=== PATIENT | male | born 1980 | race Caucasian/White ===

== ENCOUNTER → 2017-06-09 | Outpatient (CLI) | payer OTHER ==
[~2017-06-09] MED LIST: ARIP10 PO; ARIP20 PO; Ativan1 MG PO; CLON.1 PO; CLON1 PO; CODACE30 PO; CYCL10 PO; Cleocin HCl300 MG PO; DEPRESSION MED; DOXY100 PO; DULO30 PO; HYDACE5325 PO; IBUP600 PO; KETO10 PO; Kristalose20 GM PO; LORA1 PO; LORA2 PO; Loxapine10 MG PO; MEDICAL MARIJUANA; METPHE10 PO; METPHE20 PO; NAPR500 PO; OMEP40CA12 PO; ONDA4ODT MM; PRAZ1 PO; PREVPAC PO; RANI150 PO; RXCYCL10 PO; RXOXYACE PO; RXTRAM50 PO; TRAM50 PO; Zofran Odt8 MG SL; Zofran8 MG PO
[2017-06-11 21:28] LABS: Alpha Hyrdroxyalprazolam Not Detected (NOTDET); Alpha hydroxytriazolam Not Detected (NOTDET); Alprazolam Not Detected (NOTDET); Confirm Clonazepam LC/MS Not Detected (NOTDET); Confirm Flunitrazepam LC/MS Not Detected (NOTDET); Diazepam Not Detected (NOTDET); Flurazepam Not Detected (NOTDET); Lorazepam Not Detected (NOTDET); Midazolam Not Detected (NOTDET); Temazepam Not Detected (NOTDET)
== END ==
LOC: LAB 14:56
PROVIDERS: Psychiatry & Neurology Psychiatry
DX: F12.151 Cannabis abuse with psychotic disorder with hallucinations (principal); Z79.899 Other long term (current) drug therapy
CPT/HCPCS: G0480

== ENCOUNTER 2018-12-05 16:27 | Observation (INO) | payer OTHER ==
[~2018-12-05] VITALS: Ht 182.9 cm; Wt 74.8 kg
[~2018-12-05 16:27] MED LIST changes: +CLON.5; +HYOS.125 SL
[2018-12-05 18:18] LABS: BASOPHILS ABSOLUTE AUTO 0.07 K/mm3 (0.00-0.23); BASOPHILS PERCENT AUTO 1 % (0-2); EOSINOPHILS ABSOLUTE AUTO 0.21 K/mm3 (0.00-0.68); EOSINOPHILS PERCENT AUTO 2 % (0-6); Hematocrit 41.2 % (37.0-53.0); Hemoglobin 14.6 g/dL (13.5-17.5); IMMATURE GRAN ABSOLUTE AUTO 0.03 K/mm3 (0.00-0.10); IMMATURE GRAN PERCENT AUTO 0 % (0-1); LYMPHOCYTES ABSOLUTE AUTO 2.67 K/mm3 (0.84-5.20); LYMPHOCYTES PERCENT AUTO 24 % (21-46); MONOCYTES ABSOLUTE AUTO 1.09 K/mm3 (0.16-1.47); MONOCYTES PERCENT AUTO 10 % (4-13); Mean Corpuscular HGB 31.5 pg (26.0-34.0); Mean Corpuscular HGB Conc 35.4 g/dL (31.5-36.5); Mean Corpuscular Volume 89 fL (80-100); Mean Platelet Volume 10.7 fL (9.1-12.4); NEUTROPHILS ABSOLUTE AUTO 6.91 K/mm3 (1.96-9.15); NEUTROPHILS PERCENT AUTO 63 % (41-73); Platelet Count 261 K/mm3 (150-400); RDW Coefficient Variation 12.3 % (11.7-14.2); RDW Standard Deviation 40.1 fL (35.1-46.3); Red Blood Cell Count 4.64 M/mm3 (4.30-5.90); White Blood Cell Count 10.98 K/mm3 (4.00-11.30)
[2018-12-05 18:49] LABS: Source, Urine Clean Catch
[2018-12-05 18:50] LABS: Alanine Aminotransfer (ALT/SGP 26 U/L (12-78); Albumin/Globulin Ratio 1.2 (0.8-1.8); Alk Phos 70 U/L (50-136); Anion Gap 8 mmol/L (6-16); Aspartate Aminotrans (AST/SGOT 54 U/L (12-37); Bilirubin, Total 1.5 mg/dL (0.1-1.0); Blood Urea Nitrogen 14 mg/dL (8-24); Bun/Creatinine Ratio 17.7 (12.0-20.0); CO2, Blood 21 mmol/L (21-32); Calcium, Blood 8.8 mg/dL (8.5-10.1); Chloride, Blood 107 mmol/L (98-108); Creatinine, Blood 0.79 mg/dL (0.60-1.20); Globulin, Blood 3.2 g/dL (2.2-4.0); Glomerular Filtration Rate >60 (60-); Glucose, Blood 82 mg/dL (70-99); Potassium, Blood 3.4 mmol/L (3.5-5.5); Sodium, Blood 136 mmol/L (136-145); Total Protein, Blood 7.2 g/dL (6.4-8.2)
[2018-12-05 18:52] LABS: Thyroid Stimulating Hormone 0.519 uIU/mL (0.360-4.800)
[2018-12-05 18:55] LABS: Ethanol (Alcohol), Blood, Med <3 mg/dL; Salicylate 2.4 mg/dL (2.8-20.0)
[2018-12-05 19:04] LABS: Appearance, Urine Clear (Clear); Bilirubin, Urine Neg (Neg); Blood, Urine Neg (Neg); Color, Urine Yellow (P-Yellow); Glucose Qualitative, Urine Neg (Neg); Ketones, Urine 2+ (Neg); Leukocyte Esterase, Urine Neg (Neg); Nitrite, Urine Neg (Neg); Protein, Urine Neg (Neg); Specific Gravity, Urine 1.015 (1.003-1.022); Urobilinogen, Urine NORM (Normal)
[2018-12-05 19:06] LABS: Thyroxine (T4) 6.8 ug/dL (4.5-12.1)
[2018-12-05 19:08] LABS: Acetaminophen, Random <2.0 ug/mL (10.0-30.0)
[2018-12-05 19:22] LABS: U Amphetamine Screen DETECTED; U Barbituate Screen Not Detected; U Benzodiazapine Screen Not Detected; U Buprenorphine Screen Not Detected; U Cannabinoids Screen DETECTED; U Cocaine Screen Not Detected; U Methadone Screen Not Detected; U Methamphetamine Screen DETECTED; U Opiates Screen Not Detected; U Oxycodone Screen Not Detected; U Phencyclidine Screen Not Detected; U Propoxyphene Screen Not Detected
[2018-12-06] MEDS ORDERED: OLAN10 PO (12:59)
== END 2018-12-06 13:18 | disposition home or self-care (01) ==
LOC: ER 16:27 → EOR 16:28
PROVIDERS: Emergency Medicine; Physician Assistant; ADMIT Emergency Medicine
DX: F20.0 Paranoid schizophrenia (principal); F15.122 Other stimulant abuse with intoxication with perceptual disturbance; F32.9 Major depressive disorder, single episode, unspecified; F41.9 Anxiety disorder, unspecified; Z79.899 Other long term (current) drug therapy; Z91.048 Other nonmedicinal substance allergy status; Z88.8 Allergy status to other drugs, medicaments and biological substances
CPT/HCPCS: 36415; 80053; 81003; 84436; 84443; 85025; 99285; G0378; G0480; Q3014

== ENCOUNTER 2018-12-09 12:35 | Emergency (ER) | payer OTHER ==
[~2018-12-09] VITALS: Ht 182.9 cm; Wt 70.3 kg
[~2018-12-09 12:35] MED LIST changes: +OLAN10 PO
[2018-12-09 13:38] LABS: BASOPHILS ABSOLUTE AUTO 0.07 K/mm3 (0.00-0.23); BASOPHILS PERCENT AUTO 1 % (0-2); EOSINOPHILS ABSOLUTE AUTO 0.67 K/mm3 (0.00-0.68); EOSINOPHILS PERCENT AUTO 7 % (0-6); Hematocrit 42.9 % (37.0-53.0); Hemoglobin 14.7 g/dL (13.5-17.5); IMMATURE GRAN ABSOLUTE AUTO 0.02 K/mm3 (0.00-0.10); IMMATURE GRAN PERCENT AUTO 0 % (0-1); LYMPHOCYTES ABSOLUTE AUTO 3.65 K/mm3 (0.84-5.20); LYMPHOCYTES PERCENT AUTO 40 % (21-46); MONOCYTES ABSOLUTE AUTO 0.86 K/mm3 (0.16-1.47); MONOCYTES PERCENT AUTO 10 % (4-13); Mean Corpuscular HGB 31.1 pg (26.0-34.0); Mean Corpuscular HGB Conc 34.3 g/dL (31.5-36.5); Mean Corpuscular Volume 91 fL (80-100); Mean Platelet Volume 10.3 fL (9.1-12.4); NEUTROPHILS PERCENT AUTO 42 % (41-73); Platelet Count 251 K/mm3 (150-400); RDW Coefficient Variation 12.5 % (11.7-14.2); Red Blood Cell Count 4.72 M/mm3 (4.30-5.90); White Blood Cell Count 9.07 K/mm3 (4.00-11.30)
[2018-12-09 14:09] LABS: Alanine Aminotransfer (ALT/SGP 23 U/L (12-78); Albumin/Globulin Ratio 1.2 (0.8-1.8); Alk Phos 69 U/L (50-136); Anion Gap 3 mmol/L (6-16); Aspartate Aminotrans (AST/SGOT 24 U/L (12-37); Bilirubin, Total 0.8 mg/dL (0.1-1.0); Blood Urea Nitrogen 7 mg/dL (8-24); Bun/Creatinine Ratio 7.7 (12.0-20.0); CO2, Blood 27 mmol/L (21-32); Calcium, Blood 8.7 mg/dL (8.5-10.1); Chloride, Blood 111 mmol/L (98-108); Creatinine, Blood 0.91 mg/dL (0.60-1.20); Ethanol (Alcohol), Blood, Med <3 mg/dL; Globulin, Blood 3.4 g/dL (2.2-4.0); Glomerular Filtration Rate >60 (60-); Glucose, Blood 87 mg/dL (70-99); Potassium, Blood 3.7 mmol/L (3.5-5.5); Salicylate 3.2 mg/dL (2.8-20.0); Sodium, Blood 141 mmol/L (136-145); Total Protein, Blood 7.4 g/dL (6.4-8.2)
[2018-12-09 14:22] LABS: Acetaminophen, Random <2.0 ug/mL (10.0-30.0)
== END 2018-12-09 16:44 | disposition home or self-care (01) ==
LOC: ER 12:35
PROVIDERS: Physician Assistant
DX: S61.210A Laceration without foreign body of right index finger without damage to nail, initial encounter (principal); F29 Unspecified psychosis not due to a substance or known physiological condition; F31.9 Bipolar disorder, unspecified; F41.9 Anxiety disorder, unspecified; Z79.899 Other long term (current) drug therapy; Z88.8 Allergy status to other drugs, medicaments and biological substances; W26.0XXA Contact with knife, initial encounter
CPT/HCPCS: 12001; 36415; 80053; 84443; 85025; 90471; 90714; 96372-59; 99285-25; G0480

== ENCOUNTER 2018-12-13 11:50 | Emergency (ER) | payer OTHER ==
[~2018-12-13] VITALS: Ht 182.9 cm; Wt 72.6 kg
[2018-12-13] MEDS ORDERED: CEPH500 PO (13:03)
[2018-12-13] MEDS ORDERED: Bactrim Ds Tab1 EACH PO (13:03)
== END 2018-12-13 13:23 | disposition home or self-care (01) ==
LOC: ER 11:50
DX: T81.41XA Infection following a procedure, superficial incisional surgical site, initial encounter (principal); L03.011 Cellulitis of right finger; Z88.8 Allergy status to other drugs, medicaments and biological substances; Z91.048 Other nonmedicinal substance allergy status; Z79.899 Other long term (current) drug therapy; F32.9 Major depressive disorder, single episode, unspecified; F31.9 Bipolar disorder, unspecified; F17.200 Nicotine dependence, unspecified, uncomplicated
CPT/HCPCS: 99282

== ENCOUNTER 2018-12-18 15:54 | Emergency (ER) | payer OTHER ==
[~2018-12-18] VITALS: Ht 182.9 cm; Wt 72.1 kg
[~2018-12-18 15:54] MED LIST changes: +Bactrim Ds Tab1 EACH PO; +CEPH500 PO
== END 2018-12-18 16:12 | disposition home or self-care (01) ==
LOC: ER 15:54
DX: S61.210D Laceration without foreign body of right index finger without damage to nail, subsequent encounter (principal); F31.9 Bipolar disorder, unspecified; F41.9 Anxiety disorder, unspecified; Z88.8 Allergy status to other drugs, medicaments and biological substances; F17.200 Nicotine dependence, unspecified, uncomplicated; W26.0XXD Contact with knife, subsequent encounter

== ENCOUNTER 2019-05-02 09:24 | Emergency (ER) | payer OTHER ==
[~2019-05-02] VITALS: Ht 182.9 cm; Wt 72.6 kg
[2019-05-02] MEDS ORDERED: CLONAZEPAM1 MG PO (09:39)
[2019-05-02] MEDS ORDERED: METPHE20 PO (09:40)
[2019-05-02] MEDS ORDERED: Risperidone1 MG PO (09:41)
[2019-05-02] MEDS ORDERED: Norco 5-325 Ta1 EACH PO (10:45)
== END 2019-05-02 11:33 | disposition home or self-care (01) ==
LOC: ER 09:24
DX: S22.32XA Fracture of one rib, left side, initial encounter for closed fracture (principal); F12.10 Cannabis abuse, uncomplicated; F31.9 Bipolar disorder, unspecified; F41.9 Anxiety disorder, unspecified; F98.8 Other specified behavioral and emotional disorders with onset usually occurring in childhood and adolescence; F17.210 Nicotine dependence, cigarettes, uncomplicated; Z79.899 Other long term (current) drug therapy; Z91.048 Other nonmedicinal substance allergy status; Z88.8 Allergy status to other drugs, medicaments and biological substances; W06.XXXA Fall from bed, initial encounter
CPT/HCPCS: 71101; 93005; 93010; 99284-25

== ENCOUNTER 2019-06-08 16:19 | Emergency (ER) | payer OTHER ==
[~2019-06-08] VITALS: Ht 182.9 cm; Wt 72.6 kg
[~2019-06-08 16:19] MED LIST changes: +CLONAZEPAM1 MG PO; +Norco 5-325 Ta1 EACH PO; +Risperidone1 MG PO
== END 2019-06-08 21:30 | disposition home or self-care (01) ==
LOC: ER 16:19
DX: T43.631A Poisoning by methylphenidate, accidental (unintentional), initial encounter (principal); R44.0 Auditory hallucinations; F32.9 Major depressive disorder, single episode, unspecified; F98.8 Other specified behavioral and emotional disorders with onset usually occurring in childhood and adolescence; F41.9 Anxiety disorder, unspecified; F31.9 Bipolar disorder, unspecified; F20.9 Schizophrenia, unspecified; F17.210 Nicotine dependence, cigarettes, uncomplicated; Z88.8 Allergy status to other drugs, medicaments and biological substances; Z79.899 Other long term (current) drug therapy
CPT/HCPCS: 96372; 99284-25; J2060; J3486

== ENCOUNTER 2019-07-17 09:57 | Emergency (ER) | payer OTHER ==
[~2019-07-17] VITALS: Ht 182.9 cm; Wt 77.1 kg
[2019-07-17 10:28] LABS: BASOPHILS ABSOLUTE AUTO 0.09 K/mm3 (0.00-0.23); BASOPHILS PERCENT AUTO 1 % (0-2); EOSINOPHILS ABSOLUTE AUTO 0.27 K/mm3 (0.00-0.68); EOSINOPHILS PERCENT AUTO 2 % (0-6); Hematocrit 49.2 % (37.0-53.0); Hemoglobin 17.2 g/dL (13.5-17.5); IMMATURE GRAN ABSOLUTE AUTO 0.02 K/mm3 (0.00-0.10); IMMATURE GRAN PERCENT AUTO 0 % (0-1); LYMPHOCYTES ABSOLUTE AUTO 2.15 K/mm3 (0.84-5.20); LYMPHOCYTES PERCENT AUTO 18 % (21-46); MONOCYTES ABSOLUTE AUTO 0.83 K/mm3 (0.16-1.47); MONOCYTES PERCENT AUTO 7 % (4-13); Mean Corpuscular Volume 89 fL (80-100); Mean Platelet Volume 10.1 fL (9.1-12.4); NEUTROPHILS ABSOLUTE AUTO 8.95 K/mm3 (1.96-9.15); NEUTROPHILS PERCENT AUTO 73 % (41-73); Platelet Count 329 K/mm3 (150-400); RDW Coefficient Variation 12.2 % (11.7-14.2); Red Blood Cell Count 5.55 M/mm3 (4.30-5.90); White Blood Cell Count 12.31 K/mm3 (4.00-11.30)
[2019-07-17 10:47] LABS: Alanine Aminotransfer (ALT/SGP 17 U/L (12-78); Albumin, Blood 4.4 g/dL (3.4-5.0); Alk Phos 100 U/L (50-136); Anion Gap 6 mmol/L (6-16); Aspartate Aminotrans (AST/SGOT 18 U/L (12-37); Bilirubin, Total 0.5 mg/dL (0.1-1.0); Blood Urea Nitrogen 17 mg/dL (8-24); Bun/Creatinine Ratio 17.7 (12.0-20.0); CO2, Blood 23 mmol/L (21-32); Calcium, Blood 9.4 mg/dL (8.5-10.1); Chloride, Blood 105 mmol/L (98-108); Creatinine, Blood 0.96 mg/dL (0.60-1.20); Globulin, Blood 4.2 g/dL (2.2-4.0); Glomerular Filtration Rate >60 (60-); Glucose, Blood 90 mg/dL (70-99); Potassium, Blood 3.9 mmol/L (3.5-5.5); Sodium, Blood 134 mmol/L (136-145); Total Protein, Blood 8.6 g/dL (6.4-8.2)
[2019-07-17 12:09] LABS: Source, Urine Clean Catch
[2019-07-17 12:13] LABS: Bilirubin, Urine Neg (Neg); Blood, Urine 1+ (Neg); Glucose Qualitative, Urine Neg (Neg); Ketones, Urine 4+ (Neg); Leukocyte Esterase, Urine Neg (Neg); Nitrite, Urine Neg (Neg); Protein, Urine 2+ (Neg); Urobilinogen, Urine 1+ (Normal)
[2019-07-17 12:20] LABS: Appearance, Urine Clear (Clear); Color, Urine Yellow (P-Yellow)
[2019-07-17 12:22] LABS: Amorphous Light (0-Heavy); Bacteria Rare /hpf; Mucus Light (0-Heavy); Red Blood Cells, Urine 0-2 /hpf (0-2); Squamous Epithelial Cells Rare /hpf (Few); White Blood Cells, Urine 0-2 /hpf (0-5)
[2019-07-17] MEDS ORDERED: ONDA4ODT MM (13:29)
== END 2019-07-17 13:38 | disposition home or self-care (01) ==
LOC: ER 09:57
PROVIDERS: Emergency Medicine
DX: K29.00 Acute gastritis without bleeding (principal); H93.13 Tinnitus, bilateral; F41.9 Anxiety disorder, unspecified; F31.9 Bipolar disorder, unspecified; Z79.899 Other long term (current) drug therapy
CPT/HCPCS: 80053; 81001; 83690; 85025; 96361; 96374; 99283-25; J2405; J7030

== ENCOUNTER 2019-11-01 11:59 | Emergency (ER) | payer OTHER ==
[~2019-11-01] VITALS: Ht 182.9 cm; Wt 77.1 kg
[~2019-11-01 11:59] MED LIST changes: +Zithromax250 MG PO
== END 2019-11-01 16:15 | disposition left against medical advice (07) ==
LOC: ER 11:59
DX: Z53.21 Procedure and treatment not carried out due to patient leaving prior to being seen by health care provider (principal)
CPT/HCPCS: 99282

== ENCOUNTER 2021-03-16 08:30 | Emergency (ER) | payer OTHER ==
[~2021-03-16] VITALS: Ht 182.9 cm; Wt 79.4 kg
[2021-03-16 08:59] LABS: Source, Urine Clean Catch
[2021-03-16 09:01] LABS: Appearance, Urine Clear (Clear); Bilirubin, Urine Neg (Neg); Blood, Urine Neg (Neg); Color, Urine Yellow (P-Yellow); Glucose Qualitative, Urine Neg (Neg); Ketones, Urine Neg (Neg); Leukocyte Esterase, Urine Neg (Neg); Nitrite, Urine Neg (Neg); Protein, Urine Neg (Neg); Specific Gravity, Urine 1.015 (1.003-1.022); Urobilinogen, Urine NORM (Normal)
[2021-03-16] MEDS ORDERED: OLAN5A (09:07)
[2021-03-16 09:12] LABS: BASOPHILS ABSOLUTE AUTO 0.08 K/mm3 (0.00-0.23); BASOPHILS PERCENT AUTO 1 % (0-2); EOSINOPHILS ABSOLUTE AUTO 0.58 K/mm3 (0.00-0.68); EOSINOPHILS PERCENT AUTO 6 % (0-6); Hematocrit 45.1 % (37.0-53.0); Hemoglobin 15.2 g/dL (13.5-17.5); IMMATURE GRAN ABSOLUTE AUTO 0.03 K/mm3 (0.00-0.10); IMMATURE GRAN PERCENT AUTO 0 % (0-1); LYMPHOCYTES ABSOLUTE AUTO 2.49 K/mm3 (0.84-5.20); LYMPHOCYTES PERCENT AUTO 28 % (21-46); MONOCYTES PERCENT AUTO 9 % (4-13); Mean Corpuscular HGB Conc 33.7 g/dL (31.5-36.5); Mean Corpuscular Volume 92 fL (80-100); Mean Platelet Volume 10.8 fL (9.1-12.4); NEUTROPHILS ABSOLUTE AUTO 5.03 K/mm3 (1.96-9.15); NEUTROPHILS PERCENT AUTO 56 % (41-73); Platelet Count 296 K/mm3 (150-400); RDW Coefficient Variation 12.8 % (11.7-14.2); RDW Standard Deviation 43.9 fL (35.1-46.3); White Blood Cell Count 9.01 K/mm3 (4.00-11.30)
[2021-03-16 09:26] LABS: Anion Gap 2 mmol/L (6-16); Blood Urea Nitrogen 14 mg/dL (8-24); Bun/Creatinine Ratio 15.5 (12.0-20.0); CO2, Blood 27 mmol/L (21-32); Calcium, Blood 9.1 mg/dL (8.5-10.1); Chloride, Blood 110 mmol/L (98-108); Glomerular Filtration Rate >60 (60-); Glucose, Blood 89 mg/dL (70-99); Potassium, Blood 4.8 mmol/L (3.5-5.5); Sodium, Blood 139 mmol/L (136-145)
[2021-03-16] MEDS ORDERED: IBUP400 PO (10:29)
[2021-03-16] MEDS ORDERED: ACET500 PO (10:29)
[2021-03-16] MEDS ORDERED: Robaxin750 MG PO (10:29)
== END 2021-03-16 10:33 | disposition home or self-care (01) ==
LOC: ER 08:30
PROVIDERS: Student in an Organized Health Care Education/Training Program
DX: S39.012A Strain of muscle, fascia and tendon of lower back, initial encounter (principal); Z88.8 Allergy status to other drugs, medicaments and biological substances; Z79.899 Other long term (current) drug therapy; F17.210 Nicotine dependence, cigarettes, uncomplicated; X58.XXXA Exposure to other specified factors, initial encounter
CPT/HCPCS: 36415; 80048; 81003; 85025; 96374; 99284-25; A9270; J1885

== ENCOUNTER 2021-06-15 04:15 | Emergency (ER) | payer OTHER ==
[~2021-06-15] VITALS: Ht 182.9 cm; Wt 86.2 kg
[~2021-06-15 04:15] MED LIST changes: +ACET500 PO; +IBUP400 PO; +OLAN5A; +Robaxin750 MG PO
[2021-06-15] MEDS ORDERED: OLAN10 PO (04:28)
[2021-06-15] MEDS ORDERED: Protonix40 MG PO (05:01)
== END 2021-06-15 05:09 | disposition home or self-care (01) ==
LOC: ER 04:15
DX: R10.13 Epigastric pain (principal); Z88.8 Allergy status to other drugs, medicaments and biological substances; Z79.899 Other long term (current) drug therapy; F17.210 Nicotine dependence, cigarettes, uncomplicated
CPT/HCPCS: 99283; A9270

== ENCOUNTER 2022-04-03 16:57 | Observation (INO) | payer OTHER ==
[~2022-04-03] VITALS: Ht 182.9 cm; Wt 74.3 kg
[~2022-04-03 16:57] MED LIST changes: +Protonix40 MG PO
[2022-04-03 17:50] LABS: Source, Urine Clean Catch
[2022-04-03 18:03] LABS: Appearance, Urine Cloudy (Clear); Bilirubin, Urine Neg (Neg); Blood, Urine 3+ (Neg); Color, Urine Yellow (P-Yellow); Glucose Qualitative, Urine Neg (Neg); Ketones, Urine 2+ (Neg); Leukocyte Esterase, Urine 3+ (Neg); Nitrite, Urine Pos (Neg); Protein, Urine 3+ (Neg); Urobilinogen, Urine 1+ (Normal)
[2022-04-03 18:17] LABS: Amorphous Heavy (0-Heavy); Calcium Oxalate Crystals Many /hpf; White Blood Cells, Urine 50-100 /hpf (0-5)
[2022-04-03 18:18] LABS: Bacteria Many /hpf; Squamous Epithelial Cells Few /hpf (Few)
[2022-04-03 18:19] LABS: Hyaline Casts TNTC /lpf (0-2); Renal Epithelial Mod /hpf (0-Rare)
[2022-04-03 19:19] LABS: Influenza A, PCR NEGATIVE (NEGATIVE); Influenza B, PCR NEGATIVE (NEGATIVE); Resp Syncytial Virus, PCR NEGATIVE (NEGATIVE); SARS-Cov-2 (COVID-19) PCR, MMC NEGATIVE (NEGATIVE)
[2022-04-05] MEDS ORDERED: CIPR500 PO (12:31)
== END 2022-04-05 12:52 | disposition home or self-care (01) ==
LOC: ER 16:57 → EOR 16:58
PROVIDERS: Physician Assistant; ADMIT Emergency Medicine
DX: F20.3 Undifferentiated schizophrenia (principal); N39.0 Urinary tract infection, site not specified; F12.10 Cannabis abuse, uncomplicated; F15.10 Other stimulant abuse, uncomplicated; F98.8 Other specified behavioral and emotional disorders with onset usually occurring in childhood and adolescence; F17.210 Nicotine dependence, cigarettes, uncomplicated; Z88.8 Allergy status to other drugs, medicaments and biological substances; Z20.822 Contact with and (suspected) exposure to COVID-19
CPT/HCPCS: 0241U; 81001; 87077; 87086; 87186; 96372; 99285-25; A9270; G0378; J1200; J1630; J2060; J2550; Q3014

== ENCOUNTER 2022-09-21 18:50 | Emergency (ER) | payer OTHER ==
[~2022-09-21] VITALS: Ht 182.9 cm; Wt 79.4 kg
[~2022-09-21 18:50] MED LIST changes: +CIPR500 PO
[2022-09-21] MEDS ORDERED: OLANZAPINE1024 PO (19:02)
[2022-09-21 19:23] LABS: BASOPHILS ABSOLUTE AUTO 0.07 K/mm3 (0.00-0.23); BASOPHILS PERCENT AUTO 0 % (0-2); EOSINOPHILS ABSOLUTE AUTO 0.05 K/mm3 (0.00-0.68); EOSINOPHILS PERCENT AUTO 0 % (0-6); Hematocrit 45.6 % (37.0-53.0); IMMATURE GRAN ABSOLUTE AUTO 0.06 K/mm3 (0.00-0.10); IMMATURE GRAN PERCENT AUTO 0 % (0-1); LYMPHOCYTES ABSOLUTE AUTO 1.93 K/mm3 (0.84-5.20); LYMPHOCYTES PERCENT AUTO 10 % (21-46); MONOCYTES ABSOLUTE AUTO 1.74 K/mm3 (0.16-1.47); MONOCYTES PERCENT AUTO 9 % (4-13); Mean Corpuscular HGB 30.4 pg (26.0-34.0); Mean Corpuscular HGB Conc 35.1 g/dL (31.5-36.5); Mean Corpuscular Volume 87 fL (80-100); Mean Platelet Volume 10.5 fL (9.1-12.4); NEUTROPHILS ABSOLUTE AUTO 15.24 K/mm3 (1.96-9.15); NEUTROPHILS PERCENT AUTO 80 % (41-73); Platelet Count 339 K/mm3 (150-400); RDW Coefficient Variation 12.8 % (11.7-14.2); RDW Standard Deviation 40.8 fL (35.1-46.3); Red Blood Cell Count 5.27 M/mm3 (4.30-5.90); White Blood Cell Count 19.09 K/mm3 (4.00-11.30)
[2022-09-21 19:43] LABS: Albumin, Blood 4.8 g/dL (3.4-5.0); Albumin/Globulin Ratio 1.1 (0.8-1.8); Bilirubin, Total 1.3 mg/dL (0.1-1.0); Bun/Creatinine Ratio 14.3 (12.0-20.0); Calcium, Blood 10.1 mg/dL (8.5-10.1); Creatinine, Blood 0.77 mg/dL (0.60-1.20); Globulin, Blood 4.3 g/dL (2.2-4.0); Potassium, Blood 3.9 mmol/L (3.5-5.5); Total Protein, Blood 9.1 g/dL (6.4-8.2)
[2022-09-22] MEDS ORDERED: ONDA4ODT MM (00:15)
[2022-09-22 00:20] VITALS: BP 110/83
== END 2022-09-22 00:23 | disposition home or self-care (01) ==
LOC: ER 18:50
PROVIDERS: Student in an Organized Health Care Education/Training Program
DX: R10.10 Upper abdominal pain, unspecified (principal); R11.2 Nausea with vomiting, unspecified; D72.829 Elevated white blood cell count, unspecified; Z88.8 Allergy status to other drugs, medicaments and biological substances; Z79.899 Other long term (current) drug therapy; F17.210 Nicotine dependence, cigarettes, uncomplicated
CPT/HCPCS: 74177; 76705; 80053; 83690; 85025; 93005; 93010; 96374-59; 96375; 99284-25; A9270; J1790; J1885; J2405; J7030; Q9967

== ENCOUNTER → 2023-02-05 | Outpatient (CLI) | payer OTHER ==
[~2023-02-05] MED LIST changes: +OLANZAPINE1024 PO
== END ==
LOC: LAB 10:44 → LAB SHORT 10:44
DX: N30.01 Acute cystitis with hematuria (principal)
CPT/HCPCS: 87086

== ENCOUNTER → 2023-04-18 | Outpatient (CLI) | payer OTHER ==
[2023-04-19 12:51] LABS: Stool Occult Bld Immuno 1 Negative (NEGATIVE)
== END ==
LOC: LAB 07:30 → LAB SHORT 07:30
PROVIDERS: Nurse Practitioner Family
DX: K29.50 Unspecified chronic gastritis without bleeding (principal)
CPT/HCPCS: G0328

== ENCOUNTER → 2024-02-18 | Outpatient (CLI) | payer OTHER ==
[2024-02-18 12:48] LABS: BASOPHILS ABSOLUTE AUTO 0.08 K/mm3 (0.00-0.23); BASOPHILS PERCENT AUTO 1 % (0-2); EOSINOPHILS ABSOLUTE AUTO 0.53 K/mm3 (0.00-0.68); EOSINOPHILS PERCENT AUTO 6 % (0-6); Hematocrit 44.3 % (37.0-53.0); Hemoglobin 14.9 g/dL (13.5-17.5); IMMATURE GRAN ABSOLUTE AUTO 0.02 K/mm3 (0.00-0.10); IMMATURE GRAN PERCENT AUTO 0 % (0-1); LYMPHOCYTES ABSOLUTE AUTO 2.43 K/mm3 (0.84-5.20); LYMPHOCYTES PERCENT AUTO 29 % (21-46); MONOCYTES ABSOLUTE AUTO 0.79 K/mm3 (0.16-1.47); MONOCYTES PERCENT AUTO 9 % (4-13); Mean Corpuscular HGB 30.3 pg (26.0-34.0); Mean Corpuscular HGB Conc 33.6 g/dL (31.5-36.5); Mean Corpuscular Volume 90 fL (80-100); Mean Platelet Volume 10.7 fL (9.1-12.4); NEUTROPHILS ABSOLUTE AUTO 4.51 K/mm3 (1.96-9.15); NEUTROPHILS PERCENT AUTO 54 % (41-73); Platelet Count 332 K/mm3 (150-400); RDW Standard Deviation 42.8 fL (35.1-46.3); Red Blood Cell Count 4.91 M/mm3 (4.30-5.90); White Blood Cell Count 8.36 K/mm3 (4.00-11.30)
[2024-02-18 18:17] LABS: Alanine Aminotransfer (ALT/SGP 43 U/L (12-78); Albumin, Blood 4.2 g/dL (3.4-5.0); Alk Phos 97 U/L (50-136); Anion Gap 12 mmol/L (3-11); Aspartate Aminotrans (AST/SGOT 26 U/L (12-37); Bilirubin, Total 0.6 mg/dL (0.1-1.0); Blood Urea Nitrogen 11 mg/dL (8-24); Bun/Creatinine Ratio 10.9 (12.0-20.0); CHOL/HDL RATIO 3.2; CO2, Blood 23 mmol/L (21-32); Calcium, Blood 10.2 mg/dL (8.5-10.1); Chloride, Blood 108 mmol/L (98-108); Cholesterol 210 mg/dL (50-200); Creatinine, Blood 1.01 mg/dL (0.60-1.20); Glomerular Filtration Rate 94 (60-); Glucose, Blood 95 mg/dL (70-99); HDL Cholesterol 66 mg/dL (>39); LDL/HDL RATIO 1.9; Low Density Lipoprotein Chol 126 mg/dL (0-110); Potassium, Blood 4.2 mmol/L (3.5-5.5); Sodium, Blood 139 mmol/L (136-145); Total Protein, Blood 8.2 g/dL (6.4-8.2); Triglycerides 88 mg/dL (30-160); Very Low Density Lipoprot Chol 17 mg/dL (6-32)
== END | disposition home or self-care (01) ==
LOC: LAB SHORT 10:23 → LAB 10:23
PROVIDERS: Nurse Practitioner Psychiatric/Mental Health
DX: F25.1 Schizoaffective disorder, depressive type (principal)
CPT/HCPCS: 80053; 80061; 85025

== ENCOUNTER 2024-03-01 22:05 | Emergency (ER) | payer OTHER ==
[~2024-03-01] VITALS: Ht 182.9 cm; Wt 72.6 kg
[2024-03-01 22:15] VITALS: BP 141/91
== END 2024-03-01 22:22 | disposition home or self-care (01) ==
LOC: ER 22:05
DX: R44.0 Auditory hallucinations (principal); Z88.8 Allergy status to other drugs, medicaments and biological substances; Z79.899 Other long term (current) drug therapy; F17.210 Nicotine dependence, cigarettes, uncomplicated
CPT/HCPCS: 99284

== ENCOUNTER 2024-03-03 11:26 | Observation (INO) | payer OTHER ==
[~2024-03-03] VITALS: Ht 182.9 cm; Wt 83.9 kg
[2024-03-03] MEDS ORDERED: OMEP20ER PO (11:44)
[2024-03-03 12:14] LABS: BASOPHILS ABSOLUTE AUTO 0.07 K/mm3 (0.00-0.23); BASOPHILS PERCENT AUTO 1 % (0-2); EOSINOPHILS ABSOLUTE AUTO 0.37 K/mm3 (0.00-0.68); EOSINOPHILS PERCENT AUTO 4 % (0-6); Hematocrit 45.1 % (37.0-53.0); Hemoglobin 15.8 g/dL (13.5-17.5); IMMATURE GRAN ABSOLUTE AUTO 0.02 K/mm3 (0.00-0.10); IMMATURE GRAN PERCENT AUTO 0 % (0-1); LYMPHOCYTES ABSOLUTE AUTO 2.75 K/mm3 (0.84-5.20); LYMPHOCYTES PERCENT AUTO 32 % (21-46); MONOCYTES ABSOLUTE AUTO 0.77 K/mm3 (0.16-1.47); MONOCYTES PERCENT AUTO 9 % (4-13); Mean Corpuscular HGB 30.3 pg (26.0-34.0); Mean Corpuscular Volume 86 fL (80-100); Mean Platelet Volume 10.1 fL (9.1-12.4); NEUTROPHILS ABSOLUTE AUTO 4.59 K/mm3 (1.96-9.15); NEUTROPHILS PERCENT AUTO 54 % (41-73); Platelet Count 361 K/mm3 (150-400); RDW Coefficient Variation 12.4 % (11.7-14.2); RDW Standard Deviation 39.5 fL (35.1-46.3); Red Blood Cell Count 5.22 M/mm3 (4.30-5.90); White Blood Cell Count 8.57 K/mm3 (4.00-11.30)
[2024-03-03 12:49] LABS: Albumin, Blood 4.2 g/dL (3.4-5.0); Bilirubin, Total 1.4 mg/dL (0.1-1.0); Bun/Creatinine Ratio 13.1 (12.0-20.0); Calcium, Blood 9.5 mg/dL (8.5-10.1); Globulin, Blood 4.1 g/dL (2.2-4.0); Potassium, Blood 3.8 mmol/L (3.5-5.5); Total Protein, Blood 8.3 g/dL (6.4-8.2)
[2024-03-03 13:10] LABS: Ethanol (Alcohol), Blood, Med <3 mg/dL; Salicylate <1.7 mg/dL (2.8-20.0)
[2024-03-03 13:20] LABS: Acetaminophen, Random <2.0 ug/mL (10.0-30.0)
[2024-03-03 13:48] LABS: U Amphetamine Screen DETECTED; U Barbituate Screen Not Detected; U Benzodiazapine Screen Not Detected; U Buprenorphine Screen Not Detected; U Cannabinoids Screen DETECTED; U Cocaine Screen Not Detected; U Methadone Screen Not Detected; U Methamphetamine Screen DETECTED; U Opiates Screen Not Detected; U Oxycodone Screen Not Detected; U Phencyclidine Screen Not Detected
[2024-03-03] MEDS ORDERED: IBUP600 PO (18:55)
[2024-03-03] MEDS ORDERED: ACETAMINOPHEN500 M2 PO (18:55)
[2024-03-03] MEDS ORDERED: ClonazePAM 1 MG Tab PO ONE (18:55)
[2024-03-03] MEDS ORDERED: Methylphenidate HCl 18 MG TabCR PO SCH (18:55)
[2024-03-03] MEDS ORDERED: Acetaminophen 500 MG Tab PO PRN (19:00)
[2024-03-03] MEDS ORDERED: Ibuprofen 600 MG Tab PO PRN (19:00)
[2024-03-03] MEDS ORDERED: Methylphenidate HCL 5 MG TAB PO SCH (20:02)
[2024-03-03] MEDS ORDERED: ClonazePAM 1 MG Tab PO SCH (21:00)
[2024-03-03] MEDS ORDERED: OLANZapine 10 MG Tab PO SCH (21:00)
[2024-03-04] MEDS ORDERED: Omeprazole 20 MG CapCR PO SCH (06:00)
[2024-03-04] MEDS ORDERED: Methylphenidate HCL 5 MG TAB PO SCH ×2 (09:00→12:00)
[2024-03-04 10:11] VITALS: BP 125/91
== END 2024-03-04 13:18 | disposition home or self-care (01) ==
LOC: ER 11:26 → EOR 11:27 → ER 12:37 → EOR 03-04 13:18
PROVIDERS: Physician Assistant; ADMIT Student in an Organized Health Care Education/Training Program
DX: F20.0 Paranoid schizophrenia (principal); F31.9 Bipolar disorder, unspecified; F17.210 Nicotine dependence, cigarettes, uncomplicated; F98.8 Other specified behavioral and emotional disorders with onset usually occurring in childhood and adolescence; Z88.8 Allergy status to other drugs, medicaments and biological substances; Z79.899 Other long term (current) drug therapy
CPT/HCPCS: 80053; 80320; 85025; 99285-25; A9270; G0378; G0480

== ENCOUNTER 2024-04-20 06:20 | Day surgery (SDC) | payer OTHER ==
[~2024-04-20] VITALS: Ht 182.9 cm; Wt 79.0 kg
[2024-04-20] VITALS (9 sets, daily range): BP systolic 99–113; BP diastolic 55–77
[~2024-04-20 06:20] MED LIST changes: +ACETAMINOPHEN500 M2 PO; +OMEP20ER PO
[2024-04-20] MEDS ORDERED: NS 500 ML IV ONE (07:21)
[2024-04-20] MEDS ORDERED: Heparin Sodium 1000 Units/ML 10ML MDV ONE (07:21)
[2024-04-20] MEDS ORDERED: NS 1,000 ML IV ONE ×2 (07:22→07:32)
[2024-04-20] MEDS ORDERED: Midazolam HCl 1MG / ML 2ML Vial ONE ×2 (07:31→08:22)
[2024-04-20] MEDS ORDERED: FentaNYL Citrate 50 MCG/ML 2 ML Injection ONE ×2 (07:32→08:22)
[2024-04-20] MEDS ORDERED: Ketorolac Tromethamine 30mg Vial ONE (08:59)
[2024-04-20] MEDS ORDERED: DiphenhydrAMINE HCl 50 MG/ML 1ML Vial ONE (09:08)
[2024-04-20] MEDS ORDERED: Nitroglycerin 2 MG/20 ML BTL ONE (09:10)
--- NOTE | 2024-04-20 10:20 | NUR ---
PT BACK TO RECOVERY ROOM. L GROIN SITE SOFT, NO BLEEDING OR HEMATOMA NOTED. PT GIVEN SIPS OF SODA PER REQUEST. PT REMINVED TO KEEP HEAD AND LEGS DOWN.
--- NOTE | 2024-04-20 11:26 | NUR ---
PT SAT TO 30 DEGREES. GROIN SITE SOFT AND NON-TENDER PER PT. NO BLEEDING NTOED.
--- NOTE | 2024-04-20 11:31 | NUR ---
DR REID NOTIFIED OF HR IN LOW 40s. DECLINED CARDIOLOGY CONSULT.
--- NOTE | 2024-04-20 11:51 | NUR ---
groin site soft and non-tender per pt. no bleeding noted. pt given coffee per request.
--- NOTE | 2024-04-20 12:00 | NUR ---
pt using phone.
--- NOTE | 2024-04-20 13:07 | NUR ---
PT SITTING UP AT 90 DEGREES EATING LUNCH. GRION SITE SOFE AND NON TENDER, NO BLEEDING OR HEMATOMA NOTED.
--- NOTE | 2024-04-20 14:00 | NUR ---
PT DRESSED, UP TO BR. PT VERBALIZE D/C INSTRUCTIONS. GROIN SITE SOFT NON TENDER. IV D/C CATHETER INTACT.
== END 2024-04-20 15:00 | disposition home or self-care (01) ==
LOC: MHTC 06:20
DX: M25.562 Pain in left knee (principal); G89.29 Other chronic pain; F31.9 Bipolar disorder, unspecified; F20.9 Schizophrenia, unspecified; F17.290 Nicotine dependence, other tobacco product, uncomplicated; Z79.899 Other long term (current) drug therapy; Z88.8 Allergy status to other drugs, medicaments and biological substances
CPT/HCPCS: 37242; 75710; 76937; 99152; 99153; C1760; C1769; C1887; J1200; J1644; J1885; J2250; J3010; J7030; J7050; Q9967

== ENCOUNTER 2025-04-14 21:04 | Emergency (ER) | payer OTHER ==
[~2025-04-14] VITALS: Ht 182.9 cm; Wt 79.4 kg
[2025-04-14 21:48] VITALS: BP 93/60
[2025-04-14] MEDS ORDERED: SULTRIDS PO (21:55)
[2025-04-14] MEDS ORDERED: CEPH500 PO (21:55)
== END 2025-04-14 22:17 | disposition home or self-care (01) ==
LOC: ER 21:04
DX: K13.0 Diseases of lips (principal); F17.210 Nicotine dependence, cigarettes, uncomplicated; Z86.14 Personal history of Methicillin resistant Staphylococcus aureus infection; Z79.899 Other long term (current) drug therapy; Z88.1 Allergy status to other antibiotic agents; Z88.8 Allergy status to other drugs, medicaments and biological substances
CPT/HCPCS: 99282; A9270